=== PATIENT | male | born 1980 | race Caucasian/White ===

== ENCOUNTER 2023-12-29 06:22 | Day surgery (SDC) | payer OTHER ==
[~2023-12-29 06:22] MED LIST: BETADINE 5% OPHTHALMIC 30 ML OP ONE; NON-FORMULARY ITEM OP ONE; cefUROXime sodium 0.005 GM in Sodium Chloride Flush 30 ML*** 0.5 ML IJ ONE
[2023-12-29] MEDS ORDERED: Epinephrine Preservative Free 1 MG/ML IJ ONE (06:23)
[2023-12-29] MEDS ORDERED: LIDOCAINE HCL 1% 50 MG/5 ML VL PF IJ ONE (06:23)
[2023-12-29] MEDS ORDERED: Lactated Ringers 1,000 ML IV ONE (06:32)
[2023-12-29] MEDS: Lactated Ringers 1,000 ML IV SCH (07:16)
[2023-12-29] MEDS: TETRACAINE 0.5% STERI-UNIT SOL OP ONE ×2 (07:17→07:46)
[2023-12-29] MEDS: Ak-Dilate OPHTHALMIC*** 1.065 ML, Cyclogyl 1% OPHTH SOL 1.065 ML, GATIFLOXACIN 0.5% OPH... OP ONE (07:21)
[2023-12-29] MEDS ORDERED: Zofran 4 MG/2 ML VIAL IV PRN (09:00)
[2023-12-29] MEDS ORDERED: ACETAZOLAMIDE 250 MG TABLET PO ONE (09:00)
[2023-12-29] MEDS ORDERED: DIPRIVAN 200 MG/20 ML IV ONE (09:19)
[2023-12-29] MEDS ORDERED: Versed 2 MG/2 ML Injection ONE (09:20)
[2023-12-29] MEDS ORDERED: SUBLIMAZE 100 MCG/2 ML ONE (09:21)
[2023-12-29] MEDS ORDERED: Xylocaine-Mpf 2% 5 Ml Vial ONE (09:38)
--- NOTE | 2023-12-29 10:15 | XRAY ---
Indication: Aspiration. Comparison: None Portable chest slightly underinflated and clear. Heart and mediastinal structures within normal limits. Bony thorax intact. Impression: Nonacute chest.
[2023-12-29] MEDS: PROVENTIL 2.5 MG/3 ML NEB IH ONE (10:36)
[2023-12-29 10:39] VITALS: RESP 18
[2023-12-29 13:07] VITALS: BP 126/80; PULSE 85; TEMP 97.9; O2SAT 95
== END 2023-12-29 12:55 | disposition home or self-care (01) ==
LOC: SDC 06:22
PROVIDERS: ATTEND Ophthalmology
DX: H25.812 Combined forms of age-related cataract, left eye (principal); R11.10 Vomiting, unspecified
CPT/HCPCS: 71045; 94640; J0171; J2001; J2250; J2704; J3010; J7609; A9270-GY

== ENCOUNTER 2024-02-06 08:01 | Day surgery (SDC) | payer OTHER ==
[2024-02-06] MEDS ORDERED: Epinephrine Preservative Free 1 MG/ML IJ ONE (08:02)
[2024-02-06] MEDS ORDERED: Pepcid 20 MG VIAL IV ONE (08:54)
[2024-02-06] MEDS ORDERED: Lactated Ringers 1,000 ML IV ONE ×2 (08:54→12:59)
[2024-02-06] MEDS ORDERED: Reglan 10 MG/2 ML ONE (08:54)
[2024-02-06] MEDS: Lactated Ringers 1,000 ML IV SCH (08:57)
[2024-02-06] MEDS: Reglan 10 MG/2 ML IV ONE (08:57)
[2024-02-06] MEDS: Pepcid 20 MG VIAL IV ONE (08:57)
[2024-02-06] MEDS: TETRACAINE 0.5% STERI-UNIT SOL OP ONE ×2 (09:11→09:46)
[2024-02-06] MEDS: Ak-Dilate OPHTHALMIC*** 1.065 ML, Cyclogyl 1% OPHTH SOL 1.065 ML, GATIFLOXACIN 0.5% OPH... OP ONE (09:21)
[2024-02-06] MEDS ORDERED: Zofran 4 MG/2 ML VIAL IV PRN (10:30)
[2024-02-06] MEDS ORDERED: DEXMEDETOMIDINE 80 MCG/20ML-NS IV ONE (11:33)
[2024-02-06] MEDS ORDERED: Versed 2 MG/2 ML Injection ONE (11:34)
[2024-02-06] MEDS ORDERED: SUBLIMAZE 100 MCG/2 ML ONE (11:34)
[2024-02-06] MEDS ORDERED: DIPRIVAN 200 MG/20 ML IV ONE (11:41)
[2024-02-06] MEDS: ACETAZOLAMIDE 250 MG TABLET PO ONE (12:20)
[2024-02-06] MEDS ORDERED: Sodium Chloride 0.9% 1000 ML 1,000 ML ONE (14:05)
[2024-02-06 14:30] VITALS: RESP 16
[2024-02-06 14:53] VITALS: TEMP 97.1
[2024-02-06 15:08] VITALS: BP 98/64; PULSE 59; O2SAT 99
== END 2024-02-06 15:11 | disposition home or self-care (01) ==
LOC: SDC 08:01
PROVIDERS: ATTEND Ophthalmology
DX: H25.812 Combined forms of age-related cataract, left eye (principal)
CPT/HCPCS: C1780; J0171; J2250; J2704; J3010; A9270-GY

== ENCOUNTER 2024-03-05 07:22 | Day surgery (SDC) | payer OTHER ==
[2024-03-05] MEDS ORDERED: Pepcid 20 MG VIAL IV ONE (08:17)
[2024-03-05] MEDS ORDERED: Lactated Ringers 1,000 ML IV ONE ×2 (08:17→11:11)
[2024-03-05] MEDS ORDERED: Reglan 10 MG/2 ML ONE (08:17)
[2024-03-05] MEDS: Reglan 10 MG/2 ML IV ONE (08:23)
[2024-03-05] MEDS: Lactated Ringers 1,000 ML IV SCH (08:23)
[2024-03-05] MEDS: Pepcid 20 MG VIAL IV ONE (08:23)
[2024-03-05] MEDS: TETRACAINE 0.5% STERI-UNIT SOL OP ONE ×2 (08:39→09:07)
[2024-03-05] MEDS: Ak-Dilate OPHTHALMIC*** 1.065 ML, TROPICAMIDE 1.065 ML, GATIFLOXACIN 0.5% OPHTH DROPS 0... OP ONE (08:41)
[2024-03-05] MEDS ORDERED: Epinephrine Preservative Free 1 MG/ML IJ ONE (09:30)
[2024-03-05] MEDS ORDERED: Zofran 4 MG/2 ML VIAL IV PRN (10:00)
[2024-03-05] MEDS ORDERED: DEXMEDETOMIDINE 80 MCG/20ML-NS IV ONE (10:48)
[2024-03-05] MEDS ORDERED: Versed 2 MG/2 ML Injection ONE (10:49)
[2024-03-05] MEDS ORDERED: DIPRIVAN 200 MG/20 ML IV ONE (10:50)
[2024-03-05] MEDS ORDERED: SUBLIMAZE 100 MCG/2 ML ONE (10:58)
[2024-03-05 11:57] VITALS: BP 110/79; PULSE 68; RESP 16; TEMP 97.2; O2SAT 94
[2024-03-05] MEDS: ACETAZOLAMIDE 250 MG TABLET PO ONE (12:00)
== END 2024-03-05 12:12 | disposition home or self-care (01) ==
LOC: SDC 07:22
PROVIDERS: ATTEND Ophthalmology
DX: H25.811 Combined forms of age-related cataract, right eye (principal)
CPT/HCPCS: J0171; J2250; J2704; J3010; A9270-GY